=== PATIENT | female | born 2000 | race Caucasian/White ===

== ENCOUNTER → 2020-11-17 | Outpatient (CLI) | payer OTHER | LOC: KOH-I 09:48 | DX: M41.9 Scoliosis, unspecified (principal) | CPT/HCPCS: 72080 ==

== ENCOUNTER 2021-12-05 09:37 | Emergency (ER) | payer OTHER ==
[2021-12-05 10:18] LABS: RED BLOOD COUNT 4.49 M/UL (4.00-5.10)
[2021-12-05 10:39] LABS: BUN/CREATININE RATIO 18 (0-10)
== END 2021-12-05 12:56 | disposition other institution (70) ==
LOC: ER1 09:37
PROVIDERS: Emergency Medicine; Obstetrics & Gynecology
PROC: 10D17ZZ Extraction of Products of Conception, Retained, Via Natural or Artificial Opening (ICD-10-PCS; principal; 2021-12-05 14:00)
DX: O03.4 Incomplete spontaneous abortion without complication (principal); Z87.891 Personal history of nicotine dependence; Z88.0 Allergy status to penicillin; Z88.5 Allergy status to narcotic agent
CPT/HCPCS: 76817; 80053; 81001; 84702; 85025; 86850; 86900; 86901; 99285; J1170; J2250; J2270; J2405; J2704; J2795; J3010; J7030; J7120

== ENCOUNTER 2022-03-14 11:01 | Emergency (ER) | payer OTHER ==
[2022-03-14 12:25] LABS: HEMOGLOBIN 12.3 gm/dl (12.3-15.3); RED BLOOD COUNT 4.23 M/UL (4.00-5.10); WHITE BLOOD COUNT 11.6 K/UL (4.5-11.0)
[2022-03-14 12:49] LABS: BUN/CREATININE RATIO 21 (0-10)
[2022-03-14] MEDS ORDERED: ZOFRAN ODT 4 MG4 MG SL (15:29)
== END 2022-03-14 15:54 | disposition home or self-care (01) ==
LOC: ER1 11:01
PROVIDERS: Physician Assistant
DX: O99.891 Other specified diseases and conditions complicating pregnancy (principal); R10.9 Unspecified abdominal pain; R11.0 Nausea; R10.819 Abdominal tenderness, unspecified site; O99.331 Smoking (tobacco) complicating pregnancy, first trimester; Z79.899 Other long term (current) drug therapy; Z88.5 Allergy status to narcotic agent; Z3A.01 Less than 8 weeks gestation of pregnancy
CPT/HCPCS: 76817; 80053; 81001; 84702; 85025; 87086; 96374; 99284; J2405